=== PATIENT | female | born 1975 | race Caucasian/White ===

== ENCOUNTER 2019-07-04 09:40 | Emergency (ER) | payer OTHER ==
--- NOTE | 2019-07-04 10:44 | ER Document Report ---
ED Medical Screen (RME) - General Chief Complaint: Vaginal Bleeding Stated Complaint: VAGINAL BLEEDING Time Seen by Provider: 07/04/19 10:42 Mode of Arrival: Ambulatory Information source: Patient Notes: 44-year-old female presents to ED for complaint of a menstrual cycle that is much heavier than she is ever had. She states she woke up at 4:00 with her bed covered in blood and she is having menstrual type pain. She states she is passing very large clots and she is never passed clots like this before she is never bled this heavy before and she is concerned. Patient is alert oriented r espirations regular nonlabored speaking in full sentences. I will get blood urine and an ultrasound. I have greeted and performed a rapid initial assessment of this patient. A comprehensive ED assessment and evaluation of the patient, analysis of test results and completion of medical decision making process will be conducted by an additional ED providers. TRAVEL OUTSIDE OF THE [place] IN LAST 30 DAYS: No - Related Data Allergies/Adverse Reactions: No Known Allergies Allergy (Verified 03/22/16 15:23) Past Medical History Past Surgical History: Reports: Hx Gynecologic Surgery - tubal Physical Exam - Vital signs Vitals: Temp Pulse Resp BP Pulse Ox 98.0 F 78 20 124/67 100 07/04/19 10:32 07/04/19 10:32 07/04/19 10:32 07/04/19 10:32 07/04/19 10:32 Course - Vital Signs Vital signs: Temp Pulse Resp BP Pulse Ox 98.0 F 78 20 124/67 100 07/04/19 10:32 07/04/19 10:32 07/04/19 10:32 07/04/19 10:32 07/04/19 10:32
[2019-07-04 11:15] LABS: ABSOLUTE EOSINOPHILS # (AUTO) 0.1 10^3/uL (0.0-0.6); ABSOLUTE LYMPHOCYTES (AUTO) 1.5 10^3/uL (0.5-4.7); ABSOLUTE MONOCYTES (AUTO) 0.4 10^3/uL (0.1-1.4); ABSOLUTE NEUT (AUTO) 4.4 10^3/uL (1.7-8.2); BASOPHILS % (AUTO) 0.5 % (0-2); HEMATOCRIT 38.9 % (36.0-47.0); HEMOGLOBIN 13.3 g/dL (12.0-15.5); LYMPHOCYTES % (AUTO) 23.2 % (13-45); MEAN CORPUSCULAR HEMOGLOBIN 31.1 pg (27.0-33.4); MEAN CORPUSCULAR HGB CONC 34.1 g/dL (32.0-36.0); MEAN CORPUSCULAR VOLUME 91 fl (80-97); MONOCYTES % (AUTO) 6.9 % (3-13); PLATELET COUNT 220 10^3/uL (150-450); RED BLOOD COUNT 4.27 10^6/uL (3.72-5.28); RED CELL DISTRIBUTION WIDTH 13.9 % (11.5-14.0); SEGMENTED NEUTROPHILS % (AUTO) 68.4 % (42-78); TOTAL CELLS COUNTED % (AUTO) 100 %; WHITE BLOOD COUNT 6.5 10^3/uL (4.0-10.5)
[2019-07-04 11:38] LABS: ALBUMIN 3.8 g/dL (3.5-5.0); ALKALINE PHOSPHATASE 33 U/L (38-126); ASPARTATE AMINO TRANSFERASE 20 U/L (14-36); BILIRUBIN,TOTAL 0.2 mg/dL (0.2-1.3); BLOOD UREA NITROGEN 13 mg/dL (7-20); CALCIUM 8.6 mg/dL (8.4-10.2); CARBON DIOXIDE 28 mmol/L (22-30); CHLORIDE 105 mmol/L (98-107); GLUCOSE 79 mg/dL (75-110); POTASSIUM 4.4 mmol/L (3.6-5.0); TOTAL PROTEIN 6.1 g/dL (6.3-8.2)
[2019-07-04 11:52] LABS: ANION GAP 5 (5-19)
--- NOTE | 2019-07-04 12:03 | RADIOLOGY REPORT (SQ) ---
EXAM DESCRIPTION: U/S NON-OB PELVIS TV W/O DOP COMPLETED DATE/TIME: 07/04/2019 11:48 am REASON FOR STUDY: vaginal bleeding much heavier than normal COMPARISON: None. TECHNIQUE: Dynamic and static grayscale images acquired of the pelvis via transvaginal approach and recorded on PACS. Additional selected color Doppler and spectral images recorded. LIMITATIONS: None. FINDINGS: UTERUS: The uterus measures 10.5 x 5.9 x 5.6 cm. The echotexture of the myometrium is vicki ogeneous. ENDOMETRIAL STRIPE: The endometrial stripe measures 17 mm in thickness. There is an elongated echoge jami structure within the endometrial canal - correlate for an IUD or another medical parasitologist. CERVIX: The cervix measures 3.9 cm in length. RIGHT OVARY AND DOPPLER: Unable to visualize the right ovary. There is no adnexal mass. LEFT OVARY AND DOPPLER: The left ovary measures 1.7 x 4 x 2.6 cm and on Doppler there is intact arter ial inflow and venous outflow within the ovarian stroma. FREE FLUID: There is a trace amount of free fluid in the cul de sac. OTHER: No other finding. IMPRESSION: 1. Elongated echogenic structure within the endometrial canal - correlate for an IUD or another medical parasitologist. 2. Nonvisualization of the right ovary. There is no adnexal mass. 3. Normal appearance of the left ovary without evidence of ovarian torsion on Doppler. TECHNICAL DOCUMENTATION: JOB ID: [id number] [employer]- All Rights Reserved Rev-10/19 Reading location - IP/workstation name: [email or web address]
[2019-07-04 13:37] LABS: APPEARANCE,URINE CLEAR; BILIRUBIN,URINE NEGATIVE (NEGATIVE); COLOR,URINE YELLOW; GLUCOSE, URINE NEGATIVE (NEGATIVE); KETONES,URINE TRACE mg/dL (NEGATIVE); PROTEIN,URINE NEGATIVE (NEGATIVE); URINE SPECIFIC GRAVITY 1.013; UROBILINOGEN,URINE NEGATIVE mg/dL (<2.0)
--- NOTE | 2019-07-04 14:20 | ER Document Report ---
ED GI/ - General Chief Complaint: Vaginal Bleeding Stated Complaint: VAGINAL BLEEDING Time Seen by Provider: 07/04/19 10:42 Primary Care Provider: [facility] [Provider Group] - Follow up in 3-5 days Mode of Arrival: Ambulatory Notes: Patient is a 44-year-old female who presents emergency department with a chief complaint of increased vaginal bleeding. Patient states that she has never had a menstrual cycle like this before. Patient states that she currently has sterilization coils in. This morning the patient having menstrual cramping and had excessive bleeding noted. Patient states that she is having large clots. Denies any past medical history. She does not take any medications. TRAVEL OUTSIDE OF THE [place] IN LAST 30 DAYS: No - Related Data Allergies/Adverse Reactions: No Known Allergies Allergy (Verified 03/22/16 15:23) Past Medical History - General Information source: Patient Last Menstrual Period: 05/26 - Social History Smoking Status: Unknown if Ever Smoked Frequency of alcohol use: None Drug Abuse: None Family History: Reviewed & Not Pertinent Patient has suicidal ideation: No Patient has homicidal ideation: No Past Surgical History: Reports: Hx Gynecologic Surgery - tubal Review of Systems - Review of Systems Notes: REVIEW OF SYSTEMS: CONSTITUTIONAL : Denies recent illness. Denies recent unintentional weight loss. Denies fever, chills, or sweats. EENT: Denies eye, ear, throat, or mouth pain, discharge, or symptoms. Denies nasal or sinus congestion. CARDIOVASCULAR: Denies chest pain. RESPIRATORY: Denies shortness of breath, cough, congestion, difficulty breathing, or wheezing. GASTROINTESTINAL: Denies nausea, vomiting, and diarrhea. Denies abdominal pain. Denies constipation. GENITOURINARY: Denies difficulty urinating, burning, blood in urine, urgency or frequency. FEMALE GENITOURINARY: See HPI. MUSCULOSKELETAL: Denies neck and back pain. Denies joint pain or swelling. SKIN: Denies rash, itchiness, or lesions HEMATOLOGIC : Denies easy bruising or bleeding. LYMPHATIC: Denies swollen, painful, enlarged glands. NEUROLOGICAL: Denies no numbness or tingling denies weakness. Denies headache. Denies altered mental status. Denies alteration in speech. PSYCHIATRIC: Denies stress, anxiety, alteration in sleep patterns, or depression. All other systems reviewed and negative. Physical Exam - Vital signs Vitals: Temp Pulse Resp BP Pulse Ox 98.0 F 78 20 124/67 100 07/04/19 10:32 07/04/19 10:32 07/04/19 10:32 07/04/19 10:32 07/04/19 10:32 - Notes Notes: PHYSICAL EXAMINATION: GENERAL: Appears well, healthy, well-nourished, no acute distress. HEAD: Normocephalic, atraumatic. EYES: PERRL, conjunctiva normal, all extraocular movements intact, sclera nonicteric ENT: Moist mucous membranes. NECK: Supple, no noticeable swelling, redness, rash. Normal range of motion. LUNGS: Equal breath sounds bilaterally and clear to auscultation. No wheezes rales or rhonchi. CARDIOVASCULAR: S1-S2, regular rate, regular rhythm. Radial pulses 2+, normal. ABDOMEN: Normoactive bowel sounds. Soft, nontender, no guarding, no rebound tenderness, and no masses palpated. EXTREMITIES: Normal strength and range of motion, no pitting or edema. No cyano sis. NEUROLOGICAL: Moves all extremities upon command. Strength 5/5 in all extremities. PSYCH: Normal mood, normal affect. SKIN: Warm, dry. No rash, lesions, ulcerations noted. Normal skin turgor. 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 Course - Re-evaluation Re-evalutation: 07/04/19 15:19 Hematology is unremarkable. No anemia noted. Chemistries are unremarkable. Urinalysis shows a moderate amount of blood noted, consistent with her vaginal bleeding. Pelvic exam done with ASHA Sewell at bedside shows a small amount of bleeding noted. Cervical os is closed. Patient's transvaginal ultrasound does not show anything that is concerning at this time. Patient states that she does have coils from sterilization. I will have her follow-up with [facility]. She is in agreement with this plan. Follow-up precautions were given. Verbal discharge instructions were given to the patient. They verbalized understanding. They are stable for discharge. - Vital Signs Vital signs: Temp Pulse Resp BP Pulse Ox 98.0 F 80 18 118/70 99 07/04/19 15:28 07/04/19 15:28 07/04/19 15:28 07/04/19 15:28 07/04/19 15:28 - Laboratory Result Diagrams: 07/04/19 10:52 07/04/19 10:52 Laboratory results interpreted by me: 07/04/19 07/04/19 10:52 12:58 Alkaline Phosphatase 33 L Total Protein 6.1 L Urine Ketones TRACE H Urine Blood MODERATE H Discharge - Discharge Clinical Impression: Vaginal bleeding Condition: Stable Disposition: HOME, SELF-CARE Additional Instructions: You were seen today in the emergency department for vaginal bleeding. At this time, your labs are normal. Please follow-up with [facility] in regards to this visit. If you continue to have large amount of bleeding, please return to the emergency department. Forms: Return to Work Referrals: [facility] [Provider Group] - Follow up in 3-5 days
[2019-07-04 15:30] VITALS: BP 118/70
== END 2019-07-04 15:30 | disposition home or self-care (01) ==
LOC: ER 09:40
DX: N93.9 Abnormal uterine and vaginal bleeding, unspecified (principal)
CPT/HCPCS: 36415; 76830; 80053; 81001; 84703; 85025; 99284